=== PATIENT | male | born 2000 | race Caucasian/White ===

== ENCOUNTER 2021-01-07 09:18 | Emergency (ER) | payer OTHER, SELFPAY ==
--- NOTE | 2021-01-07 09:21 | ED.EAR ---
HPI - Ear Problem General Chief complaint: Ear Stated complaint: R EARACHE Time Seen by Provider: 01/07/21 09:22 Source: patient and RN notes reviewed History of Present Illness HPI Narrative: Patient is a 20-year-old male who presents the urgent care with complaints of right ear pain and a mild sore throat. Patient states that the sore throat started yesterday and he woke up with ear pain this morning. Patient denies of any other upper respiratory symptoms. Denies of fever, chills, nausea, vomiting. Denies of any known exposure to Covid or strep. Patient states that he does have a history of ear infections and typically has a sore throat with the infection. Denies of any use of [id number] medication or putting anything in the ears. No other acute complaints. No acute distress noted. Patient aware of the plan of care. Some parts of this dictation were generated by voice recognition software and may contain typographical and/or grammatical inaccuracies. Related Data Home Medications Medication Instructions Recorded Confirmed No Home Medications 01/07/21 01/07/21 Allergies Allergy/AdvReac Type Severity Reaction Status Date / Time No Known Allergies Allergy Unverified 04/01/16 08:08 Review of Systems Review of Systems: Narrative: CONSTITUTIONAL: Denies fever, chills, or sweats. EYES: Denies visual changes, redness, or discharge. ENT: Reports of right otalgia and sore throat CARDIOVASCULAR: Denies chest pain, palpitations, or edema. RESPIRATORY: Denies cough or dyspnea. GASTROINTESTINAL: Denies abdominal pain, nausea, vomiting, or diarrhea. GENITOURINARY: Denies dysuria or hematuria. SKIN: Denies rash or itching. MUSCULOSKELETAL: Denies back pain, joint pain, or myalgia. NEUROLOGIC: Denies headache, numbness, or weakness. All other systems reviewed are negative, except as documented in HPI. PMFSH Comments At the time of my signature, I reviewed and agree with the nursing past medical, surgical, social, and family history. There is no relevant family history pertinent to the patient complaint. Exam Narrative: Exam Narrative: GENERAL: This is a well-nourished, well-developed patient, in no apparent distress. HEAD: normocephalic, atraumatic. EYES: PERRL. Sclera clear/white. Vision is grossly intact. EARS: External ears normal, auditory canals clear and without drainage, very mild fluid behind right TM without otitis, left TMs normal without perforation. Hearing grossly intact. NOSE: External nose normal with no obvious nasal discharge, nares without redness, no rhinorrhea. THROAT: Mucous membranes moist, posterior pharynx clear. Mild postnasal drainage with mild erythema noted to posterior oropharynx. NECK: Neck supple, non-tender without lymphadenopathy CARDIOVASCULAR: Regular rate and rhythm RESPIRATORY: Clear to auscultation. Breath sounds equal bilaterally. SKIN: warm, intact with no suspicious lesions or rash, good texture and turgor. NEURO: awake, alert, and oriented to person, place and time. There were no obvious focal neurologic abnormalities. EXTREMITIES: No clubbing, cyanosis, or edema. Course Vital Signs Vital signs: Vital Signs Temperature 97.4 F L 01/07/21 09:25 Pulse Rate 71 01/07/21 09:25 Respiratory Rate 16 01/07/21 09:25 Blood Pressure 134/66 01/07/21 09:25 Pulse Oximetry 100 01/07/21 09:25 Temperature 97.4 F L 01/07/21 09:25 Pulse Rate 71 01/07/21 09:25 Respiratory Rate 16 01/07/21 09:25 Blood Pressure 134/66 01/07/21 09:25 Pulse Oximetry 100 01/07/21 09:25 Reviewed Medical Decision Making MDM Narrative Medical decision making narrative: Advised the patient to use Flonase [id number] and an oral antihistamine such as Claritin/Zyrtec/Benadryl. You have mild fluid noted behind the ear but otherwise no infection or necessary antibiotic treatment. Use Tylenol/ibuprofen/warm compress for comfort and pain relief. If you develop any increase in sympto
[2021-01-07 09:25] VITALS: BP 134/66; PULSE 71; RESP 16; TEMP 36.3; O2SAT 100
== END 2021-01-07 09:37 | disposition home or self-care (01) ==
PROVIDERS: Emergency Provider Nurse Practitioner Family
DX: H92.01 Otalgia, right ear (principal); Z85.47 Personal history of malignant neoplasm of testis; Z90.79 Acquired absence of other genital organ(s)
CPT/HCPCS: 99202; G0463